=== PATIENT | male | born 1990 | race Caucasian/White ===

== ENCOUNTER 2017-04-06 14:55 | Emergency (ER) | payer OTHER ==
[2017-04-06 17:04] VITALS: BP 117/80
== END 2017-04-06 17:04 | disposition home or self-care (01) ==
LOC: ED 14:55
DX: S81.852A Open bite, left lower leg, initial encounter (principal); S81.851A Open bite, right lower leg, initial encounter; W54.0XXA Bitten by dog, initial encounter; Y93.89 Activity, other specified; Y99.8 Other external cause status; Y92.89 Other specified places as the place of occurrence of the external cause
CPT/HCPCS: 90715